=== PATIENT | female | born 1970 | race Caucasian/White ===

== ENCOUNTER 2020-08-21 19:14 | Inpatient (IN) ==
[2020-08-21] MEDS ORDERED: Naloxone 0.4 MG/ML INJ IVP PRN (20:32)
[2020-08-21] MEDS ORDERED: Ondansetron 4 MG/2 ML VIAL IVP PRN (20:37)
[2020-08-21] MEDS ORDERED: Benzonatate 100 MG CAPSULE PO PRN (20:42)
[2020-08-21] MEDS ORDERED: Potassium Phosphate 44 MEQ in 0.9 % Sodium Chloride 250 ML IVPB ONE (20:47)
[2020-08-21] MEDS: Cefepime HCl 2,000 MG in Water for inj. (sterile) 20 ML IVP SCH (21:12)
[2020-08-21] MEDS: Acetaminophen 325 MG TABLET PO PRN (21:20)
[2020-08-21] MEDS: predniSONE 20 MG TABLET PO SCH (21:59)
[2020-08-21] MEDS: MetroNIDAZOLE 500 MG/100 ML 500 MG/100 ML BAG IVPB SCH (21:59)
[2020-08-21] MEDS: Ipratropium/Albuterol Neb 3 ML IH SCH ×2 (22:04→23:44)
[2020-08-21] MEDS ORDERED: Nicotine 21 MG PATCH.TD24 TD PRN (22:17)
[2020-08-21] MEDS ORDERED: Aspirin 325 MG TABLET PO ONE (22:32)
[2020-08-21] MEDS ORDERED: Ringers Solution, Lactated 1,000 ML IVC ONE (22:34)
[2020-08-21] MEDS: Vancomycin 1,250 MG/262.5 ML IV.SOLN IVPB SCH (23:16)
[2020-08-21] MEDS: Topiramate 25 MG TABLET PO SCH (23:16)
[2020-08-22] MEDS: Melatonin 3 MG TABLET PO SCH ×2 (00:58→20:45)
[2020-08-22] MEDS: Ipratropium/Albuterol Neb 3 ML IH SCH ×7 (03:54→23:42)
[2020-08-22] MEDS: Cefepime HCl 2,000 MG in Water for inj. (sterile) 20 ML IVP SCH (05:48)
[2020-08-22] MEDS: MetroNIDAZOLE 500 MG/100 ML 500 MG/100 ML BAG IVPB SCH (05:48)
[2020-08-22 06:10] LABS: Hematocrit 32.8 % (35.3-44.9); Hemoglobin 10.3 g/dL (11.5-15.4); Mean Corpuscular HGB Conc 31.4 g/dL (31.6-35.5); Mean Corpuscular Hemoglobin 30.6 pg (28.0-33.3); Mean Corpuscular Volume 97.3 fL (83.0-100.0); Platelet Count 250 K/mcL (140-400); Red Blood Count 3.37 M/mcL (3.82-4.97); Red Cell Distribution Width 12.9 % (11.5-14.5)
[2020-08-22 06:56] LABS: BUN/Creatinine Ratio 14 (6-26); Blood Urea Nitrogen 6 mg/dL (6-20); Calcium 8.3 mg/dL (8.6-10.3); Carbon Dioxide 29 mEq/L (23-29); Chloride 102 mEq/L (98-107); Glucose 159 mg/dL (70-105); Osmolality,Calculated 289 (280-300); Phosphorous 3.1 mg/dL (2.7-4.5); Potassium 3.6 mEq/L (3.5-5.1); Sodium 139 mEq/L (136-145); eGFR For African Americans > 60 (> 60); eGFR For Non-African Americans > 60 (> 60)
[2020-08-22] MEDS ORDERED: Dexamethasone 4 MG/ML VIAL ONE (08:15)
[2020-08-22] MEDS ORDERED: *HR* Succinylcholine 200 MG/10 ML VIAL IVP ONE (08:15)
[2020-08-22] MEDS ORDERED: *HR* Propofol 200 MG/20 ML VIAL IVP ONE (08:15)
[2020-08-22] MEDS ORDERED: Lidocaine -MPF 2% 2 ML VIAL ONE (08:15)
[2020-08-22] MEDS ORDERED: Ondansetron 4 MG/2 ML VIAL ONE (08:15)
[2020-08-22] MEDS ORDERED: *HR* FentaNYL (PF) 100 MCG/2 ML VIAL ONE (08:15)
[2020-08-22] MEDS ORDERED: Promethazine 6.25 MG in Water for inj. (sterile) 20 ML IVPB PRN (08:29)
[2020-08-22] MEDS ORDERED: *HR* HYDROmorphone PF 0.5 MG/0.5 ML SYRINGE IVP PRN (08:29)
[2020-08-22] MEDS ORDERED: *HR* OxyCODONE Immed Rel 5 MG TABLET PO PRN (08:29)
[2020-08-22] MEDS ORDERED: Ondansetron 4 MG/2 ML VIAL IVP PRN (08:29)
[2020-08-22] MEDS ORDERED: Ringers Solution, Lactated 1,000 ML IVC SCH (08:30)
[2020-08-22] MEDS ORDERED: Lidocaine -MPF 4% 5 ML AMPUL ONE (08:39)
[2020-08-22] MEDS ORDERED: Topiramate 25 MG TABLET PO SCH (09:00)
[2020-08-22] MEDS ORDERED: Ipratropium/Albuterol Neb 3 ML IH ONE (09:23)
[2020-08-22] MEDS: predniSONE 20 MG TABLET PO SCH (10:44)
[2020-08-22] MEDS: Aspirin 81 MG TAB.CHEW PO SCH (10:44)
[2020-08-22] MEDS: Vancomycin 1,250 MG/262.5 ML IV.SOLN IVPB SCH (10:47)
[2020-08-22 14:28] LABS: Source of Body Fluid BAL rt.lower lobe
[2020-08-22] MEDS ORDERED: Ipratropium/Albuterol Neb 3 ML IH PRN (16:03)
[2020-08-22] MEDS: Piperacillin/Tazobactam 3.375 GM in 0.9 % Sodium Chloride Mini Bag 100 ML IVPB SCH (16:45)
[2020-08-22 17:16] LABS: Appearance of Body Fluid Cloudy (Clear); Volume of Body Fluid 16 mL
[2020-08-22] MEDS: Budesonide/Formoterol 160/4.5 1 PUFF INH IH SCH (20:20)
[2020-08-22] MEDS: Topiramate 25 MG TABLET PO SCH (20:45)
[2020-08-23] MEDS: Piperacillin/Tazobactam 3.375 GM in 0.9 % Sodium Chloride Mini Bag 100 ML IVPB SCH ×3 (00:20→15:43)
[2020-08-23] MEDS: *HR* OxyCODONE Immed Rel 5 MG TABLET PO PRN ×2 (02:35→21:14)
[2020-08-23] MEDS: Ipratropium/Albuterol Neb 3 ML IH SCH ×6 (04:03→23:54)
[2020-08-23 04:14] LABS: Basophils % 0.1 %; Hematocrit 28.3 % (35.3-44.9); Immature Granulocytes % 0.9 % (0-4); Lymphocytes # 0.5 K/mcL (0.6-4.6); Lymphocytes % 2.5 %; Mean Corpuscular HGB Conc 31.8 g/dL (31.6-35.5); Mean Corpuscular Hemoglobin 30.9 pg (28.0-33.3); Mean Corpuscular Volume 97.3 fL (83.0-100.0); Mean Platelet Volume 9.1 fL (9.4-12.4); Monocytes # 0.8 K/mcL (0.0-1.3); Monocytes % 4.3 %; Neutrophils # 17.7 K/mcL (1.6-8.9); Platelet Count 265 K/mcL (140-400); Red Blood Count 2.91 M/mcL (3.82-4.97); Red Cell Distribution Width 12.9 % (11.5-14.5); Segmented Neutrophils % 92.2 %; White Blood Count 19.2 K/mcL (4.3-11.1)
[2020-08-23 04:29] LABS: Alanine Aminotransferase 9 Units/L (7-52); Albumin 2.5 g/dL (3.5-5.7); Albumin/Globulin Ratio 0.8 (1.1-2.2); Alkaline Phosphatase 77 Units/L (34-104); Aspartate Amino Transferase 9 Units/L (13-39); BUN/Creatinine Ratio 21 (6-26); Bilirubin,Total 0.3 mg/dL (0.3-1.0); Blood Urea Nitrogen 11 mg/dL (6-20); Calcium 8.4 mg/dL (8.6-10.3); Carbon Dioxide 29 mEq/L (23-29); Chloride 103 mEq/L (98-107); Globulin 3.2 g/dL (2.4-3.5); Glucose 153 mg/dL (70-105); Osmolality,Calculated 286 (280-300); Potassium 3.3 mEq/L (3.5-5.1); Sodium 137 mEq/L (136-145); Total Protein 5.7 g/dL (6.4-8.9); eGFR For African Americans > 60 (> 60); eGFR For Non-African Americans > 60 (> 60)
[2020-08-23] MEDS: *HR* Enoxaparin 40 MG/0.4 ML SYRINGE SQ SCH (05:50)
[2020-08-23] MEDS: predniSONE 20 MG TABLET PO SCH (07:27)
[2020-08-23] MEDS: Aspirin 81 MG TAB.CHEW PO SCH (07:27)
[2020-08-23] MEDS: Budesonide/Formoterol 160/4.5 1 PUFF INH IH SCH ×2 (07:35→20:07)
[2020-08-23] MEDS: Multivit/Ca/Min/Fe/FA 1 TAB TABLET PO SCH (09:13)
[2020-08-23] MEDS: Calcium Gluconate 1gm/50mL 1 GM/50 ML BAG IVPB SCH ×2 (11:09→12:45)
[2020-08-23] MEDS: MetroNIDAZOLE 500 MG/100 ML 500 MG/100 ML BAG IVPB SCH (12:09)
[2020-08-23] MEDS: Cefepime HCl 2,000 MG in Water for inj. (sterile) 20 ML IVP SCH (12:09)
[2020-08-23] MEDS: MethylPREDNISolone 40 MG/ML VIAL IVP SCH (15:42)
[2020-08-23] MEDS: Furosemide 40 MG/4 ML VIAL IVP SCH (15:43)
[2020-08-23 16:36] LABS: Bilirubin,Urine Negative (Negative); Blood,Urine Negative (Negative); Clarity,Urine Clear (Clear); Color,Urine Light-Yellow (Yellow); Glucose,Urine (UA) Normal (Normal); Ketones,Urine Negative (Negative); Leukocyte Esterase,Urine Negative (Negative); Nitrite,Urine Negative (Negative); Protein,Urine Negative (Neg-Trace); Specific Gravity,Urine 1.012 (1.010-1.025); Urobilinogen,Urine Normal (Normal)
[2020-08-23] MEDS: Topiramate 25 MG TABLET PO SCH (21:10)
[2020-08-23] MEDS: Melatonin 3 MG TABLET PO SCH (21:10)
[2020-08-23] MEDS ORDERED: *HR* LORazepam 0.5 MG TABLET PO ONE (22:34)
[2020-08-24] MEDS: Piperacillin/Tazobactam 3.375 GM in 0.9 % Sodium Chloride Mini Bag 100 ML IVPB SCH ×3 (00:43→15:48)
[2020-08-24] MEDS: Ipratropium/Albuterol Neb 3 ML IH SCH ×6 (03:39→23:23)
[2020-08-24] MEDS: MethylPREDNISolone 40 MG/ML VIAL IVP SCH ×2 (04:57→15:49)
[2020-08-24] MEDS: *HR* Enoxaparin 40 MG/0.4 ML SYRINGE SQ SCH (04:57)
[2020-08-24 06:23] LABS: Basophils % 0.1 %; Hematocrit 28.5 % (35.3-44.9); Hemoglobin 8.9 g/dL (11.5-15.4); Lymphocytes # 0.7 K/mcL (0.6-4.6); Lymphocytes % 4.3 %; Mean Corpuscular HGB Conc 31.2 g/dL (31.6-35.5); Mean Corpuscular Hemoglobin 30.2 pg (28.0-33.3); Mean Corpuscular Volume 96.6 fL (83.0-100.0); Mean Platelet Volume 9.1 fL (9.4-12.4); Monocytes # 0.8 K/mcL (0.0-1.3); Monocytes % 4.6 %; Neutrophils # 15.4 K/mcL (1.6-8.9); Platelet Count 282 K/mcL (140-400); Red Blood Count 2.95 M/mcL (3.82-4.97); Red Cell Distribution Width 13.1 % (11.5-14.5); White Blood Count 17.1 K/mcL (4.3-11.1)
[2020-08-24 06:42] LABS: BUN/Creatinine Ratio 25 (6-26); Blood Urea Nitrogen 12 mg/dL (6-20); Calcium 8.7 mg/dL (8.6-10.3); Carbon Dioxide 27 mEq/L (23-29); Chloride 102 mEq/L (98-107); Glucose 148 mg/dL (70-105); Magnesium 1.9 mg/dL (1.6-2.6); Osmolality,Calculated 289 (280-300); Phosphorous 3.9 mg/dL (2.7-4.5); Potassium 3.3 mEq/L (3.5-5.1); Sodium 138 mEq/L (136-145); eGFR For African Americans > 60 (> 60); eGFR For Non-African Americans > 60 (> 60)
[2020-08-24] MEDS: Budesonide/Formoterol 160/4.5 1 PUFF INH IH SCH ×2 (07:27→19:47)
[2020-08-24] MEDS: Multivit/Ca/Min/Fe/FA 1 TAB TABLET PO SCH (08:20)
[2020-08-24] MEDS: Aspirin 81 MG TAB.CHEW PO SCH (08:20)
[2020-08-24] MEDS: Furosemide 40 MG/4 ML VIAL IVP SCH (08:20)
[2020-08-24] MEDS: Acetaminophen 325 MG TABLET PO PRN (08:28)
[2020-08-24] MEDS: Melatonin 3 MG TABLET PO SCH (20:52)
[2020-08-24] MEDS: Topiramate 25 MG TABLET PO SCH (20:52)
[2020-08-25] MEDS: Piperacillin/Tazobactam 3.375 GM in 0.9 % Sodium Chloride Mini Bag 100 ML IVPB SCH ×3 (00:06→15:29)
[2020-08-25] MEDS: Ipratropium/Albuterol Neb 3 ML IH SCH ×6 (03:23→23:01)
[2020-08-25] MEDS: MethylPREDNISolone 40 MG/ML VIAL IVP SCH ×2 (05:19→15:29)
[2020-08-25] MEDS: *HR* Enoxaparin 40 MG/0.4 ML SYRINGE SQ SCH (05:19)
[2020-08-25 05:26] LABS: Basophils % 0.1 %; Hematocrit 30.6 % (35.3-44.9); Hemoglobin 9.4 g/dL (11.5-15.4); Immature Granulocytes % 1.1 % (0-4); Lymphocytes # 0.9 K/mcL (0.6-4.6); Mean Corpuscular HGB Conc 30.7 g/dL (31.6-35.5); Mean Corpuscular Hemoglobin 30.6 pg (28.0-33.3); Mean Corpuscular Volume 99.7 fL (83.0-100.0); Mean Platelet Volume 9.2 fL (9.4-12.4); Monocytes # 0.7 K/mcL (0.0-1.3); Monocytes % 5.6 %; Neutrophils # 10.9 K/mcL (1.6-8.9); Platelet Count 341 K/mcL (140-400); Red Blood Count 3.07 M/mcL (3.82-4.97); Segmented Neutrophils % 86.2 %; White Blood Count 12.6 K/mcL (4.3-11.1)
[2020-08-25 05:34] LABS: INR 1.2
[2020-08-25 05:50] LABS: Influenza A PCR Body Fluid NOT DETECTED; Influenza B PCR Body Fluid NOT DETECTED; RVP Body Fluid Source BAL
[2020-08-25 05:51] LABS: % Iron Saturation 33 % (15-50); BUN/Creatinine Ratio 24 (6-26); Blood Urea Nitrogen 12 mg/dL (6-20); Calcium 8.9 mg/dL (8.6-10.3); Carbon Dioxide 29 mEq/L (23-29); Chloride 103 mEq/L (98-107); Glucose 111 mg/dL (70-105); Iron 70 mcg/dL (50-170); Magnesium 2.4 mg/dL (1.6-2.6); Osmolality,Calculated 292 (280-300); Phosphorous 3.7 mg/dL (2.7-4.5); Potassium 3.9 mEq/L (3.5-5.1); Sodium 141 mEq/L (136-145); Transferrin 151 mg/dL (203-362); eGFR For African Americans > 60 (> 60); eGFR For Non-African Americans > 60 (> 60)
[2020-08-25 06:07] LABS: Ferritin 351 ng/mL (10-120)
[2020-08-25 06:31] LABS: RSV PCR Body Fluid NOT DETECTED
[2020-08-25] MEDS: Budesonide/Formoterol 160/4.5 1 PUFF INH IH SCH ×2 (07:26→19:37)
[2020-08-25] MEDS: Aspirin 81 MG TAB.CHEW PO SCH (07:30)
[2020-08-25] MEDS: Multivit/Ca/Min/Fe/FA 1 TAB TABLET PO SCH (07:30)
[2020-08-25] MEDS ORDERED: Furosemide 20 MG TABLET PO SCH (09:00)
[2020-08-25] MEDS: Melatonin 3 MG TABLET PO SCH (19:01)
[2020-08-25] MEDS: Topiramate 25 MG TABLET PO SCH (19:02)
[2020-08-26] MEDS: Ipratropium/Albuterol Neb 3 ML IH SCH ×4 (03:43→16:08)
[2020-08-26] MEDS: *HR* Enoxaparin 40 MG/0.4 ML SYRINGE SQ SCH (07:08)
[2020-08-26] MEDS: Budesonide/Formoterol 160/4.5 1 PUFF INH IH SCH (08:20)
[2020-08-26 08:26] LABS: Hematocrit 32.7 % (35.3-44.9); Hemoglobin 10.1 g/dL (11.5-15.4); Mean Corpuscular HGB Conc 30.9 g/dL (31.6-35.5); Mean Corpuscular Hemoglobin 30.9 pg (28.0-33.3); Mean Platelet Volume 8.9 fL (9.4-12.4); Platelet Count 338 K/mcL (140-400); Red Blood Count 3.27 M/mcL (3.82-4.97); White Blood Count 12.7 K/mcL (4.3-11.1)
[2020-08-26 08:46] LABS: BUN/Creatinine Ratio 30 (6-26); Blood Urea Nitrogen 16 mg/dL (6-20); Calcium 8.7 mg/dL (8.6-10.3); Carbon Dioxide 29 mEq/L (23-29); Chloride 103 mEq/L (98-107); Glucose 88 mg/dL (70-105); Osmolality,Calculated 287 (280-300); Potassium 4.1 mEq/L (3.5-5.1); Sodium 138 mEq/L (136-145); eGFR For African Americans > 60 (> 60); eGFR For Non-African Americans > 60 (> 60)
[2020-08-26] MEDS ORDERED: levoFLOXacin 750 MG TABLET PO SCH (09:00)
[2020-08-26] MEDS ORDERED: predniSONE 20 MG TABLET PO SCH (09:00)
[2020-08-26] MEDS: Aspirin 81 MG TAB.CHEW PO SCH (10:24)
[2020-08-26] MEDS: Multivit/Ca/Min/Fe/FA 1 TAB TABLET PO SCH (10:24)
[2020-08-26 10:27] VITALS: BP 133/79
== END 2020-08-26 16:35 | disposition home or self-care (01) | DRG 720 ==
LOC: 2ANU → SUATTDRO 22:52
PROVIDERS: ADMIT Internal Medicine; ATTEND Internal Medicine